=== PATIENT | male | born 1990 | race Caucasian/White ===

== ENCOUNTER 2017-09-04 15:45 | Emergency (ER) | payer MEDICAID ==
[2017-09-04 15:51] VITALS: TEMP 97.3
--- NOTE | 2017-09-04 16:34 | EDPHY ---
H & P Stated Complaint: CP x 1 hr while in shower, SOB, lightheaded Source: Patient Exam Limitations: No limitations - Personal History Current Tetanus/Diphtheria Vaccine: Unsure Current Tetanus Diphtheria and Acellular Pertussis (TDAP): Unsure - Medical/Surgical History Hx Asthma: No Hx Chronic Respiratory Disease: No Hx Diabetes: No Hx Cardiac Disease: No Hx Renal Disease: No Hx Cirrhosis: No Hx Alcoholism: No Hx HIV/AIDS: No Hx Splenectomy or Spleen Trauma: No Other PMH: "none" - Social History Smoking Status: Heavy smoker Time Seen by Provider: 09/04/17 16:31 HPI/ROS: HPI: This is a 26-year-old male who presents with Chief Complaint: chest pain Location: Left-sided chest pain Quality: Pressure Duration: 1 hour prior to arrival Signs and Symptoms: No shortness of breath, + intermittent dry cough-this morning, + dizziness, no nausea, no vomiting, no lower extremity edema, no calf pain, no wheezing, no fever, no palpitations Timing: Sudden, lasting a few minutes, resolved Severity: Mild Context: Patient has a history of extensive cocaine use in the past denies in the last 6 months, 2 pack per day tobacco use presents with sudden onset of left anterior chest pain described as pressure, mild in nature, radiating to his back while he was in the shower prior to arrival. Reports that at the same time, patient was washing his hair, with his head bent over. Upon arrival, chest pain has resolved. Denies shortness of breath/palpitations. Went to [place] recently. Reports drinking excessive amounts of caffeine throughout the day with poor food intake secondary to stressful job. Denies any family history of cardiac disease or cardiac at a young age. No recent heavy lifting/injury. Modifying Factors: Has not tried anything for the symptoms Comment: ROS: see HPI Constitutional: No fever, no chills, no weight loss Eyes: No blurred vision Respiratory: No shortness of breath, no cough Cardiovascular: No chest pain Gastrointestinal: No nausea, no vomiting, no diarrhea Genitourinary: No dysuria Extremities: No myalgias Neurologic: No weakness, no numbness Skin: No rashes Hematologic: No bruising, no bleeding MEDICAL/SURGICAL/SOCIAL HISTORY: Medical history: Healthy Surgical history: Denies Social history: Employed CONSTITUTIONAL: Anxious thin, well-developed, well-nourished young adult white male, awake and alert, no obvious distress HEENT: Atraumatic and normocephalic, PERRL, EOMI. Tympanic membranes clear. Oropharynx clear, no exudate and moist pink mucosa. Airway patent. No lymphadenopathy. No meningismus. Cardiovascular: Normal S1/S2, regular rate, regular rhythm, without murmur rub or gallop. PULMONARY/CHEST: Symmetrical and nontender. Clear to auscultation bilaterally. Good air movement. No accessory muscle usage. ABDOMEN: Soft, nondistended, nontender, no rebound, no guarding, no peritoneal signs, no masses or organomegaly. No CVAT. EXTREMITIES: 2/2 pulses, no deformities, no clubbing, no cyanosis or edema. NEUROLOGICAL: no focal neuro deficits. GCS 15. SKIN: Warm and dry, no erythema. no rash. Good capillary refill. (Yeny Murray) Constitutional: Initial Vital Signs Temperature (C) 36.3 C 09/04/17 15:48 Heart Rate 89 09/04/17 15:48 Respiratory Rate 16 09/04/17 15:48 Blood Pressure 117/82 H 09/04/17 15:48 O2 Sat (%) 95 09/04/17 15:48 O2 Delivery Mode Room Air Allergies/Adverse Reactions: Sulfa (Sulfonamide Antibiotics) Allergy (Verified 09/04/17 15:46) Home Medications: Medication Instructions Recorded NK [No Known Home Meds] 09/04/17 Medical Decision Making - Diagnostics EKG Interpretation: 12 lead EKG: Indication: Chest pain Rhythm: Normal sinus rhythm, rate 59 beats per minute [place]: Normal Intervals: Normal QRS: Normal ST segments: Normal INTERPRETATION: Normal EKG The 12 lead EKG was interpreted by myself and reviewed with attending. (Yeny Murray) Imaging Results: Imaging Impressions Chest X-Ray 09/04/17 16:22 Impression: No evidence of acute cardiopulmonary abnormality. ED Course/Re-evaluation: EKG, chest x-ray, labs, UDS ordered Atypical chest pain and LUCIANA risk low. 1730: Labs reviewed including normal D-dimer, ProBNP and troponin. X-ray my read shows no effusion/pneumothorax/opacity No chest pain at discharge. Advised to stop smoking and decrease caffeine intake. [facility] with [facility]. (Yeny Murray) The patient was evaluated and managed by the physician [id number]/[id number] assistant navigator. I have reviewed this chart and I agree with the findings and plan of care as documented , as indicated by my signature. I am the secondary supervising physician. ( Keiko Landis) Differential Diagnosis: Chest pain including but not limited to myocardial ischemia, pulmonary embolus, chest wall pain, pleural inflammation and pulmonary infectious causes. (Yeny Murray) - Data Points Laboratory Results: Laboratory Results 09/04/17 16:34 09/04/17 16:34 09/04/17 09/04/17 09/04/17 17:30 16:34 16:34 WBC RBC Hgb Hct MCV MCH MCHC RDW Plt Count MPV Neut % (Auto) Lymph % (Auto) Wirt % (Auto) Eos % (Auto) Baso % (Auto) Nucleat RBC Rel Count Absolute Neuts (auto) Absolute Lymphs (auto) Absolute Monos (auto) Absolute Eos (auto) Absolute Basos (auto) Absolute Nucleated RBC Immature Gran % Immature Gran # D-Dimer < 0.27 ug/mLFEU ug/mLFEU (0.00-0.50) Sodium 141 mEq/L mEq/L (134-144) Potassium 4.3 mEq/L mEq/L (3.5-5.2) Chloride 106 mEq/L mEq/L (97-110) Carbon Dioxide 23 mEq/l mEq/l (22-31) Anion Gap 12 mEq/L mEq/L (8-16) BUN 15 mg/dL mg/dL (7-23) Creatinine 0.9 mg/dL mg/dL (0.7-1.3) Estimated GFR > 60 Glucose 79 mg/dL mg/dL (70-100) Calcium 10.2 mg/dL mg/dL (8.5-10.4) Total Bilirubin 0.9 mg/dL mg/dL (0.1-1.4) Conjugated Bilirubin 0.3 mg/dL mg/dL (0.0-0.5) Unconjugated Bilirubin 0.6 mg/dL mg/dL (0.0-1.1) AST 24 IU/L IU/L (17-59) ALT 35 IU/L IU/L (21-72) Alkaline Phosphatase 64 IU/L IU/L (38-126) Troponin I < 0.012 ng/mL ng/mL (0.000-0.034) NT-Pro-B Natriuret Pep 26 pg/mL pg/mL (0-125) Total Protein 7.8 g/dL g/dL (6.3-8.2) Albumin 4.7 g/dL g/dL (3.5-5.0) Lipase 94 IU/L IU/L (23-300) Urine Opiates Screen NEGATIVE (NEGATIVE) Urine Barbiturates NEGATIVE (NEGATIVE) Ur Phencyclidine Scrn NEGATIVE (NEGATIVE) Ur Amphetamine Screen NEGATIVE (NEGATIVE) U Benzodiazepines Scrn NEGATIVE (NEGATIVE) Urine Cocaine Screen NEGATIVE (NEGATIVE) U Marijuana (THC) Screen NEGATIVE (NEGATIVE) 09/04/17 16:34 WBC 4.10 10^3/uL 10^3/uL (3.80-9.50) RBC 5.12 10^6/uL 10^6/uL (4.40-6.38) Hgb 16.3 g/dL g/dL (13.7-17.5) Hct 46.8 % % (40.0-51.0) MCV 91.4 fL fL (81.5-99.8) MCH 31.8 pg pg (27.9-34.1) MCHC 34.8 g/dL g/dL (32.4-36.7) RDW 13.2 % % (11.5-15.2) Plt Count 192 10^3/uL 10^3/uL (150-400) MPV 10.3 fL fL (8.7-11.7) Neut % (Auto) 42.0 % % (39.3-74.2) Lymph % (Auto) 45.1 % H % (15.0-45.0) Wirt % (Auto) 7.8 % % (4.5-13.0) Eos % (Auto) 3.4 % % (0.6-7.6) Baso % (Auto) 1.5 % % (0.3-1.7) Nucleat RBC Rel Count 0.0 % % (0.0-0.2) Absolute Neuts (auto) 1.72 10^3/uL 10^3/uL (1.70-6.50) Absolute Lymphs (auto) 1.85 10^3/uL 10^3/uL (1.00-3.00) Absolute Monos (auto) 0.32 10^3/uL 10^3/uL (0.30-0.80) Absolute Eos (auto) 0.14 10^3/uL 10^3/uL (0.03-0.40) Absolute Basos (auto) 0.06 10^3/uL 10^3/uL (0.02-0.10) Absolute Nucleated RBC 0.00 10^3/uL 10^3/uL (0-0.01) Immature Gran % 0.2 % % (0.0-1.1) Immature Gran # 0.01 10^3/uL 10^3/uL (0.00-0.10) D-Dimer Sodium Potassium Chloride Carbon Dioxide Anion Gap BUN Creatinine Estimated GFR Glucose Calcium Total Bilirubin Conjugated Bilirubin Unconjugated Bilirubin AST ALT Alkaline Phosphatase Troponin I NT-Pro-B Natriuret Pep Total Protein Albumin Lipase Urine Opiates Screen Urine Barbiturates Ur Phencyclidine Scrn Ur Amphetamine Screen U Benzodiazepines Scrn Urine Cocaine Screen U Marijuana (THC) Screen Departure - Departure Disposition: Home, Routine, Self-Care Clinical Impression: Atypical chest pain, Tobacco use disorder, Excessive caffeine abuse, continuous Condition: Good Instructions: Chest Pain (ED) Additional Instructions: Studies today show that your chest pain is not related to your heart or lung. You need to decrease your caffeine intake and stop smoking. Establish care with [facility]. Referrals: [facility],. [Clinic] - As per Instructions
[2017-09-04 16:44] LABS: % IMMATURE GRANULYOCYTES 0.2 % (0.0-1.1); ABSOLUTE IMMATURE GRANULOCYTES 0.01 10^3/uL (0.00-0.10); ADD DIFF? NO; ADD MORPH? NO; ADD SCAN? NO; ATYPICAL LYMPHOCYTE FLAG 20 (0-99); FRAGMENT RBC FLAG 0 (0-99); HEMATOCRIT 46.8 % (40.0-51.0); HEMOGLOBIN 16.3 g/dL (13.7-17.5); LEFT SHIFT FLG 0 (0-99); LIPEMIA HEMOLYSIS FLAG 90 (0-99); MEAN CELL HEMOGLOBIN 31.8 pg (27.9-34.1); MEAN CELL HEMOGLOBIN CONCENTR. 34.8 g/dL (32.4-36.7); MEAN CELL VOLUME 91.4 fL (81.5-99.8); MEAN PLATELET VOLUME 10.3 fL (8.7-11.7); PLATELET CLUMPS FLAG 0 (0-99); PLATELET COUNT 192 10^3/uL (150-400); RED BLOOD CELL COUNT 5.12 10^6/uL (4.40-6.38); RED CELL DISTRIBUTION WIDTH 13.2 % (11.5-15.2)
--- NOTE | 2017-09-04 16:46 | CPEKG ---
Heart Rate: 59 RR Interval: 1017 P-R Interval: 156 QRSD Interval: 86 QT Interval: 408 QTC Interval: 405 P Bernie: 59 QRS Bernie: 40 T Wave Bernie: 41 EKG Severity - NORMAL ECG - EKG Impression: SINUS RHYTHM Electronically Signed By: Braden Alvarez 05-Sep-2017 09:43:29
[2017-09-04 16:58] LABS: ALANINE AMINOTRANSFERASE 35 IU/L (21-72); ALBUMIN 4.7 g/dL (3.5-5.0); ALKALINE PHOSPHATASE 64 IU/L (38-126); ANION GAP 12 mEq/L (8-16); ASPARTATE AMINOTRANSFERASE 24 IU/L (17-59); BILIRUBIN,TOTAL 0.9 mg/dL (0.1-1.4); BILIRUBIN-CONJUGATED 0.3 mg/dL (0.0-0.5); BILIRUBIN-UNCONJUGATED 0.6 mg/dL (0.0-1.1); CALCIUM 10.2 mg/dL (8.5-10.4); CARBON DIOXIDE 23 mEq/l (22-31); CHLORIDE 106 mEq/L (97-110); CREATININE 0.9 mg/dL (0.7-1.3); GLOMERULAR FILTRATION RATE > 60; GLUCOSE 79 mg/dL (70-100); POTASSIUM 4.3 mEq/L (3.5-5.2); SODIUM 141 mEq/L (134-144); TOTAL PROTEIN 7.8 g/dL (6.3-8.2)
[2017-09-04 17:10] LABS: TROPONIN I < 0.012 ng/mL (0.000-0.034)
[2017-09-04 17:39] VITALS: BP 119/76; PULSE 69; RESP 18; O2SAT 97
== END 2017-09-04 18:07 | disposition home or self-care (01) ==
DX: R07.89 Other chest pain (principal); F15.10 Other stimulant abuse, uncomplicated; F17.200 Nicotine dependence, unspecified, uncomplicated
CPT/HCPCS: 80305